=== PATIENT | male | born 1950 | race African-American/Black ===

== ENCOUNTER 2016-04-26 12:47 | Inpatient (IN) | payer MEDICARE, MEDICAID ==
[~2016-04-26] VITALS: Ht 182.9 cm; Wt 55.8 kg
[~2016-04-26 12:47] MED LIST: AMLO10TA55 PO; BUPR100T6 PO; LEVO50 PO; PHEN-649 PO; PHENY100 PO
[2016-04-26 14:23] LABS: BASOPHILS # (AUTO) 0.02 K/uL (0.00-0.20); BASOPHILS % (AUTO) 0.2 % (0.0-2.0); EOSINOPHILS # (AUTO) 0.08 K/uL (0.00-0.70); EOSINOPHILS % (AUTO) 0.88 % (1.0-6.0); HEMATOCRIT 45.4 % (41-53); HEMOGLOBIN 14.9 g/dL (13.5-17.5); LYMPHOCYTES # (AUTO) 2.3 K/uL (1.0-4.8); LYMPHOCYTES % (AUTO) 26.2 % (22.0-44.0); MEAN CORPUSCULAR HEMOGLOBIN 27.2 pg (26.0-34.0); MEAN CORPUSCULAR HGB CONC 32.9 G/dL (31.0-37.0); MEAN CORPUSCULAR VOLUME 83 fL (80-100); MONOCYTES # (AUTO) 0.8 K/uL (0.1-1.0); MONOCYTES % (AUTO) 9.2 % (2.0-9.0); NEUTROPHILS # (AUTO) 5.5 K/uL (1.8-7.7); NEUTROPHILS % (AUTO) 63.5 % (40.0-70.0); PLATELET COUNT (AUTO) 508 K/uL (150-450); RED BLOOD CELL COUNT(AUTO) 5.49 MIL/uL (4.50-5.90); WHITE BLOOD COUNT (AUTO) 8.6 K/uL (4.5-11.0)
[2016-04-26 14:36] LABS: ANION GAP 13 mmol/L (8-16); CALCIUM, TOTAL 8.7 mg/dL (8.8-10.5); CARBON DIOXIDE 22 mmol/L (22-29); CHLORIDE 99 mmol/L (98-107); GLOMERULAR FILTR. RATE CALC > 60 mL/min (>60); POTASSIUM 3.2 mmol/L (3.5-5.1); SODIUM SERUM 134 mmol/L (136-145); UREA NITROGEN, BLOOD 6 mg/dL (7-18)
[2016-04-26 14:41] LABS: ALANINE AMINOTRANSFERASE 18 U/L (12-78); ASPARTATE AMINOTRANSFERASE 29 U/L (15-37); BILIRUBIN,TOTAL 0.3 mg/dL (0.1-1.0); TOTAL PROTEIN, SERUM 7.7 g/dL (6.4-8.2)
[2016-04-26 14:50] LABS: ALBUMIN 3.3 g/dL (3.4-5.0)
[2016-04-26] MEDS ORDERED: POTASSIUM CHLORIDE 20 MEQ ER TABLET PO ONE (17:45)
[2016-04-26] MEDS ORDERED: DIPHENOXYLATE/ATROP 2.5-0.025 MG TABLET PO ONE (18:30)
[2016-04-26] MEDS: LORazepam 2 MG TABLET PO PRN (18:42)
[2016-04-26] MEDS: HALOPERIDOL 5 MG TABLET PO PRN (18:42)
[2016-04-26 21:15] VITALS: BP 161/99
[2016-04-27 02:06] VITALS: BP 128/77
[2016-04-27] MEDS: ZOLPIDEM TARTRATE 10 MG TABLET PO PRN (02:06)
[2016-04-27] MEDS: HALOPERIDOL 5 MG TABLET PO PRN ×3 (02:06→16:37)
[2016-04-27] MEDS: LORazepam 2 MG TABLET PO PRN ×3 (02:24→16:37)
[2016-04-27] MEDS: LEVOTHYROXINE SODIUM 50 MCG TABLET PO SCH (06:44)
[2016-04-27 08:00] VITALS: BP 137/75
[2016-04-27] MEDS: AmLODIPine BESYLATE 5 MG TABLET PO SCH (08:19)
[2016-04-27] MEDS: NICOTINE 14 MG/24 HOUR PATCH TD SCH (08:20)
[2016-04-27] MEDS ORDERED: AMLO-511 PO (13:11)
[2016-04-27] MEDS: PHENYTOIN SODIUM 100 MG ER CAPSULE PO SCH (15:16)
[2016-04-27 19:10] VITALS: BP 125/70
[2016-04-28] MEDS: LEVOTHYROXINE SODIUM 50 MCG TABLET PO SCH (06:34)
[2016-04-28 06:39] VITALS: BP 122/73
[2016-04-28 08:05] VITALS: BP 134/90
[2016-04-28] MEDS: AmLODIPine BESYLATE 5 MG TABLET PO SCH (08:41)
[2016-04-28] MEDS: PHENYTOIN SODIUM 100 MG ER CAPSULE PO SCH (08:41)
[2016-04-28] MEDS: NICOTINE 14 MG/24 HOUR PATCH TD SCH (09:00)
[2016-04-28 17:00] VITALS: BP 119/70
[2016-04-28] MEDS: ZOLPIDEM TARTRATE 10 MG TABLET PO PRN (21:16)
[2016-04-29] MEDS: LORazepam 2 MG TABLET PO PRN ×3 (00:40→18:48)
[2016-04-29 06:24] VITALS: BP 123/76
[2016-04-29] MEDS: LEVOTHYROXINE SODIUM 50 MCG TABLET PO SCH (06:38)
[2016-04-29 08:10] VITALS: BP 128/80
[2016-04-29] MEDS: AmLODIPine BESYLATE 5 MG TABLET PO SCH (08:25)
[2016-04-29] MEDS: PHENYTOIN SODIUM 100 MG ER CAPSULE PO SCH (08:25)
[2016-04-29] MEDS: NICOTINE 14 MG/24 HOUR PATCH TD SCH (08:26)
[2016-04-29] MEDS ORDERED: BuPROPion HCL 150 MG SR TABLET PO SCH (09:00)
[2016-04-29] MEDS ORDERED: OLANZapine 5 MG TABLET PO SCH (09:00)
[2016-04-29] MEDS: LOPERAMIDE HCL 2 MG CAPSULE PO PRN ×2 (09:13→14:11)
[2016-04-29] MEDS ORDERED: POTASSIUM CHLORIDE 20 MEQ ER TABLET PO ONE (14:15)
[2016-04-29 17:00] VITALS: BP 141/76
[2016-04-29] MEDS ORDERED: LACTOBACILLUS ACIDOPHILUS/BULGARICUS GRANULES PACKET PO SCH (17:00)
[2016-04-29] MEDS ORDERED: CHOLESTYRAMINE/ASPARTAME 4 GM POWDER PACKET PO SCH (17:00)
[2016-04-29] MEDS ORDERED: LEVO50 PO (20:43)
[2016-04-29] MEDS ORDERED: BUPR150SR PO (20:46)
[2016-04-29] MEDS ORDERED: OLAN5TAB2 PO (20:46)
== END 2016-04-29 21:30 | disposition home or self-care (01) | DRG 885 ==
LOC: EMS 12:51 → 3EX 20:02
PROVIDERS: ADMIT Psychiatry & Neurology Psychiatry; ATTEND Psychiatry & Neurology Psychiatry
DX: F25.1 Schizoaffective disorder, depressive type (principal); R45.851 Suicidal ideations; E87.1 Hypo-osmolality and hyponatremia; B19.20 Unspecified viral hepatitis C without hepatic coma; E03.9 Hypothyroidism, unspecified; E87.6 Hypokalemia; F11.10 Opioid abuse, uncomplicated; F13.10 Sedative, hypnotic or anxiolytic abuse, uncomplicated; G40.909 Epilepsy, unspecified, not intractable, without status epilepticus; I10 Essential (primary) hypertension; J44.9 Chronic obstructive pulmonary disease, unspecified; J45.909 Unspecified asthma, uncomplicated; M81.0 Age-related osteoporosis without current pathological fracture; R32 Unspecified urinary incontinence; F17.210 Nicotine dependence, cigarettes, uncomplicated; Z59.0 Homelessness; Z91.14 Patient's other noncompliance with medication regimen; Z87.81 Personal history of (healed) traumatic fracture; Z87.09 Personal history of other diseases of the respiratory system
CPT/HCPCS: 99285; G0480

== ENCOUNTER 2016-08-26 10:07 | Emergency (ER) | payer MEDICARE, OTHER ==
[~2016-08-26] VITALS: Ht 167.6 cm; Wt 68.0 kg
[~2016-08-26 10:07] MED LIST changes: +AMLO-511 PO; -AMLO10TA55 PO; -BUPR100T6 PO; +BUPR150SR PO; +OLAN5TAB2 PO; -PHEN-649 PO
[2016-08-26 11:05] LABS: BASOPHILS % (AUTO) 2.2 % (0.0-2.0); EOSINOPHILS % (AUTO) 2.8 % (1.0-6.0); HEMATOCRIT 44.8 % (41-53); LYMPHOCYTES % (AUTO) 43.8 % (22.0-44.0); MEAN CORPUSCULAR HEMOGLOBIN 26.1 pg (26.0-34.0); MEAN CORPUSCULAR HGB CONC 31.1 G/dL (31.0-37.0); MEAN CORPUSCULAR VOLUME 84 fL (80-100); MONOCYTES # (AUTO) 1.2 K/uL (0.1-1.0); MONOCYTES % (AUTO) 17.3 % (2.0-9.0); NEUTROPHILS # (AUTO) 2.3 K/uL (1.8-7.7); NEUTROPHILS % (AUTO) 33.9 % (40.0-70.0); PLATELET COUNT (AUTO) 174 K/uL (150-450); RED BLOOD CELL COUNT(AUTO) 5.35 MIL/uL (4.50-5.90); RED CELL DISTRIBUTION WIDTH 15.6 % (11.5-14.5); WHITE BLOOD COUNT (AUTO) 6.8 K/uL (4.5-11.0)
[2016-08-26 11:20] LABS: ANION GAP 6 mmol/L (8-16); CALCIUM, TOTAL 8.8 mg/dL (8.8-10.5); CARBON DIOXIDE 28 mmol/L (22-29); CHLORIDE 101 mmol/L (98-107); CREATININE 1.03 mg/dL (0.60-1.30); GLOMERULAR FILTR. RATE CALC > 60 mL/min (>60); POTASSIUM 5.5 mmol/L (3.5-5.1); SODIUM SERUM 135 mmol/L (136-145); UREA NITROGEN, BLOOD 14 mg/dL (7-18)
[2016-08-26 11:26] LABS: BILIRUBIN,TOTAL 0.4 mg/dL (0.1-1.0)
[2016-08-26 12:20] LABS: ALANINE AMINOTRANSFERASE 48 U/L (12-78); ALBUMIN 3.4 g/dL (3.4-5.0); ASPARTATE AMINOTRANSFERASE 70 U/L (15-37); CREATINE KINASE MB 0.9 ng/mL (0-5); CREATINE KINASE, TOTAL 306 U/L (39-308); TOTAL PROTEIN, SERUM 8.3 g/dL (6.4-8.2)
[2016-08-26 15:08] VITALS: BP 109/65
[2016-08-26 16:22] LABS: APPEARANCE,URINE CLEAR (CLEAR); GLUCOSE, URINE (UA) NEGATIVE (NEGATIVE); KETONES,URINE NEGATIVE (NEGATIVE); LEUKOCYTE ESTERASE ,URINE NEGATIVE (NEGATIVE); OCCULT BLOOD,URINE NEGATIVE (NEGATIVE); PROTEIN,URINE TRACE (NEGATIVE)
[2016-08-26 16:23] LABS: ADD UA MICROSCOPIC NO
== END 2016-08-26 16:05 | disposition home or self-care (01) ==
LOC: EMS 10:09
DX: T40.691A Poisoning by other narcotics, accidental (unintentional), initial encounter (principal); J44.9 Chronic obstructive pulmonary disease, unspecified; J45.909 Unspecified asthma, uncomplicated; I10 Essential (primary) hypertension; F17.210 Nicotine dependence, cigarettes, uncomplicated; Z88.5 Allergy status to narcotic agent; Z88.6 Allergy status to analgesic agent; Z91.013 Allergy to seafood; Y92.89 Other specified places as the place of occurrence of the external cause
CPT/HCPCS: 36415; 80053; 80307; 81003; 82550; 82553; 84484; 85025; 93005; 99285; G0480

== ENCOUNTER 2017-02-05 20:22 | Emergency (ER) | payer MEDICARE, OTHER ==
[~2017-02-05] VITALS: Ht 182.9 cm; Wt 75.0 kg
[2017-02-05] MEDS ORDERED: ALBU8HFA IH (20:35)
[2017-02-05] MEDS ORDERED: LORA1TAB3 PO (20:35)
[2017-02-05] MEDS ORDERED: PHEN20EL5 PO (20:35)
[2017-02-05] MEDS ORDERED: PROM25 PO (20:35)
[2017-02-05 21:31] LABS: BASOPHILS # (AUTO) 0.07 K/uL (0.00-0.20); BASOPHILS % (AUTO) 1.2 % (0.0-2.0); EOSINOPHILS # (AUTO) 0.04 K/uL (0.00-0.70); EOSINOPHILS % (AUTO) 0.64 % (1.0-6.0); HEMATOCRIT 39.8 % (41-53); LYMPHOCYTES # (AUTO) 3.8 K/uL (1.0-4.8); LYMPHOCYTES % (AUTO) 63.9 % (22.0-44.0); MEAN CORPUSCULAR HEMOGLOBIN 29.7 pg (26.0-34.0); MEAN CORPUSCULAR HGB CONC 32.7 G/dL (31.0-37.0); MEAN CORPUSCULAR VOLUME 91 fL (80-100); MONOCYTES # (AUTO) 0.6 K/uL (0.1-1.0); MONOCYTES % (AUTO) 10.5 % (2.0-9.0); NEUTROPHILS # (AUTO) 1.4 K/uL (1.8-7.7); NEUTROPHILS % (AUTO) 23.8 % (40.0-70.0); PLATELET COUNT (AUTO) 186 K/uL (150-450); RED BLOOD CELL COUNT(AUTO) 4.37 MIL/uL (4.50-5.90); RED CELL DISTRIBUTION WIDTH 16.3 % (11.5-14.5)
[2017-02-05 21:40] LABS: ANION GAP 11 mmol/L (8-16); CALCIUM, TOTAL 8.4 mg/dL (8.8-10.5); CARBON DIOXIDE 22 mmol/L (22-29); CHLORIDE 106 mmol/L (98-107); CREATININE 1.03 mg/dL (0.60-1.30); GLOMERULAR FILTR. RATE CALC > 60 mL/min (>60); POTASSIUM 3.5 mmol/L (3.5-5.1); SODIUM SERUM 139 mmol/L (136-145); UREA NITROGEN, BLOOD 24 mg/dL (7-18)
[2017-02-05 21:46] LABS: ALANINE AMINOTRANSFERASE 61 U/L (12-78); ALBUMIN 3.3 g/dL (3.4-5.0); ASPARTATE AMINOTRANSFERASE 92 U/L (15-37); BILIRUBIN,TOTAL 0.3 mg/dL (0.1-1.0); TOTAL PROTEIN, SERUM 7.8 g/dL (6.4-8.2)
[2017-02-05 21:53] LABS: THYROID STIMULATING HORMONE 0.37 uIU/mL (0.36-3.74)
[2017-02-06] MEDS ORDERED: PHENYTOIN SODIUM 100 MG ER CAPSULE PO ONE
[2017-02-06 00:24] VITALS: BP 128/86
== END 2017-02-06 00:42 | disposition home or self-care (01) ==
LOC: EMS 20:24
DX: F10.229 Alcohol dependence with intoxication, unspecified (principal); J45.909 Unspecified asthma, uncomplicated; J44.9 Chronic obstructive pulmonary disease, unspecified; K21.9 Gastro-esophageal reflux disease without esophagitis; I10 Essential (primary) hypertension; F17.210 Nicotine dependence, cigarettes, uncomplicated; Z86.73 Personal history of transient ischemic attack (TIA), and cerebral infarction without residual deficits; Z88.6 Allergy status to analgesic agent; Z88.5 Allergy status to narcotic agent; Z91.013 Allergy to seafood; Y90.8 Blood alcohol level of 240 mg/100 ml or more
CPT/HCPCS: 36415; 80053; 80184; 80185; 80307; 84443; 85025; 99284; G0480